=== PATIENT | female | born 1990 | race Caucasian/White ===

== ENCOUNTER → 2016-07-26 | Outpatient (CLI) | payer MEDICAID | END | disposition disaster alternative care site (69) | LOC: GRES 14:32 | DX: Z48.24 Encounter for aftercare following lung transplant (principal); Z41.8 Encounter for other procedures for purposes other than remedying health state; Z94.2 Lung transplant status ==

== ENCOUNTER → 2016-08-30 | Outpatient (CLI) | payer MEDICAID | END | disposition disaster alternative care site (69) | LOC: GRES 14:17 | DX: Z48.24 Encounter for aftercare following lung transplant (principal); Z94.2 Lung transplant status; Z53.8 Procedure and treatment not carried out for other reasons ==

== ENCOUNTER → 2016-10-11 | Outpatient (CLI) | payer MEDICAID | END | disposition disaster alternative care site (69) | LOC: GRES 09-27 15:00 | DX: Z48.24 Encounter for aftercare following lung transplant (principal); Z41.8 Encounter for other procedures for purposes other than remedying health state; Z94.2 Lung transplant status ==

== ENCOUNTER → 2016-12-01 | Outpatient (CLI) | payer MEDICAID | END | disposition disaster alternative care site (69) | LOC: GRES 11-29 15:00 | DX: Z48.24 Encounter for aftercare following lung transplant (principal); Z94.2 Lung transplant status ==